=== PATIENT | male | born 1960 ===

== ENCOUNTER 2018-03-09 13:03 | Outpatient (CLI) | payer OTHER ==
[~2018-03-09] VITALS: Ht 167.6 cm; Wt 83.9 kg
== END 2018-03-09 17:00 | disposition home or self-care (01) ==
LOC: OFIC 805 13:03
DX: R68.89 Other general symptoms and signs (principal); R09.81 Nasal congestion; J37.0 Chronic laryngitis

== ENCOUNTER 2018-04-08 11:35 | Outpatient (CLI) | payer OTHER ==
[~2018-04-08] VITALS: Ht 152.4 cm; Wt 83.9 kg
== END 2018-04-08 11:45 | disposition home or self-care (01) ==
LOC: OFIC 805 11:35
DX: J30.89 Other allergic rhinitis (principal); R09.81 Nasal congestion

== ENCOUNTER 2018-06-10 08:37 | Outpatient (CLI) | payer OTHER ==
[~2018-06-10] VITALS: Ht 152.4 cm; Wt 83.9 kg
== END 2018-06-10 09:00 | disposition home or self-care (01) ==
LOC: OFIC 805 08:37
DX: R68.89 Other general symptoms and signs (principal); R09.81 Nasal congestion; J30.89 Other allergic rhinitis

== ENCOUNTER 2018-07-26 09:06 | Outpatient (CLI) | payer OTHER ==
[~2018-07-26] VITALS: Ht 152.4 cm; Wt 81.6 kg
== END 2018-07-26 09:20 | disposition home or self-care (01) ==
LOC: OFIC 805 09:06
DX: R09.81 Nasal congestion (principal); J30.89 Other allergic rhinitis; R68.89 Other general symptoms and signs; J04.0 Acute laryngitis

== ENCOUNTER 2021-08-06 09:39 | Inpatient (IN) | payer OTHER ==
[~2021-08-06] VITALS: Ht 168.9 cm; Wt 77.1 kg
[2021-10-16] MEDS ORDERED: ATORVASTATIN CA10 MG PO (13:42)
[2021-10-16] MEDS ORDERED: COZAAR25 MG PO (13:42)
[2021-10-16] MEDS ORDERED: METFORMIN HCL850 M1 PO (13:42)
[2021-10-16] MEDS ORDERED: LEVO-T25 MCG PO (13:42)
[2021-10-16] MEDS ORDERED: TYLENOL325 MG PO (13:43)
[2021-10-21] MEDS ORDERED: ATORVASTATIN CA20 MG (16:29)
[2021-10-21] MEDS ORDERED: LEVOTHYROXINE25 MC1 (16:29)
[2021-10-21] MEDS ORDERED: FAMOTIDINE20 MG (16:29)
[2021-10-21] MEDS ORDERED: LOSARTAN POTASS50 MG (16:30)
[2021-10-23] MEDS ORDERED: BACTRIM DS TAB1 EACH PO (10:57)
[2021-10-23] MEDS ORDERED: INTEGRA PLUS C1 EACH PO (10:57)
[2021-10-23] MEDS ORDERED: XARELTO10 MG PO (10:57)
[2021-10-23] MEDS ORDERED: OXYC1TAB9 PO (10:57)
== END 2021-10-23 10:52 | disposition home or self-care (01) | DRG 470 ==
LOC: SURH 10-21 08:15 → O/R 10-21 10:20 → SURH 10-21 15:15 → SURG 10-21 19:41 → SURH 10-21 20:21
PROVIDERS: ADMIT Orthopaedic Surgery Sports Medicine; ATTEND Orthopaedic Surgery Sports Medicine
PROC: 0SR90JZ Replacement of Right Hip Joint with Synthetic Substitute, Open Approach (ICD-10-PCS; principal; 2021-10-21 15:15)
DX: M16.11 Unilateral primary osteoarthritis, right hip (principal); E03.8 Other specified hypothyroidism; Z20.822 Contact with and (suspected) exposure to COVID-19; E11.9 Type 2 diabetes mellitus without complications